=== PATIENT | female | born 1990 | race Asian ===

== ENCOUNTER 2018-03-31 13:40 | Emergency (ER) | payer OTHER ==
[~2018-03-31] VITALS: Ht 172.7 cm; Wt 59.0 kg
[2018-03-31 13:45] VITALS: BP 98/65
[2018-03-31] MEDS ORDERED: ORPHENADRINE CITRATE 60 MG/2 ML VIAL. IM ONE (14:15)
[2018-03-31] MEDS ORDERED: KETOROLAC 60 MG/2 ML INJ. IM ONE (14:15)
[2018-03-31 14:28] LABS: BILIRUBIN,URINE NEGATIVE (NEG); CLARITY,URINE CLEAR; COLOR,URINE YELLOW; NITRITE,URINE NEGATIVE (NEG); PH,URINE 5.5; PROTEIN,URINE NEGATIVE (NEG-TRACE); UROBILINOGEN,URINE 0.2 mg/dL (0.2 mg/dL)
[2018-03-31 14:47] LABS: BACTERIA,URINE FEW /HPF (0-FEW); RBC,URINE RARE /HPF (0-2); SQUAMOUS EPITHELIAL CELL,UR FEW /LPF
--- NOTE | 2018-03-31 15:26 | PHYS DOC ---
Past Medical History Past Medical History: Hypothyroid Past Surgical History: No Surgical History Alcohol Use: None Drug Use: None Adult General Chief Complaint Chief Complaint: BACK PAIN OR INJURY HPI HPI Patient is a 27 year old female who presents to the emergency room today with complaints of low back pain that radiates into her bilateral buttocks for the last two weeks. States that she took 220 mg of Aleve this morning that seemed to help her pain slightly. Currently, she reports her low back pain is a 4 out of 10 on the pain scale. Patient states for the last week she has also had increased urinary frequency. She denies any dysuria, saddle anesthesia, loss of bowel or bladder control, fever, foul smelling urine, hematuria, irregular vaginal discharge, or pelvic pain. Review of Systems Review of Systems Constitutional: Denies fever or chills [] Respiratory: Denies cough or shortness of breath [] GI: Denies abdominal pain, nausea, vomiting, or diarrhea [] : Denies dysuria or hematuria, reports increased urinary frequency x1 week [] Musculoskeletal: Deniesx joint pain, reports low back pain x2 weeks [] Neurologic: Denies headache, focal weakness or sensory changes [] Current Medications Current Medications Current Medications Medications (Trade) Dose Ordered Sig/Torsten Start Time Stop Time Status Last Admin Dose Admin Ketorolac Tromethamine (Toradol Im) 30 mg 1X ONCE 03/31/18 14:15 03/31/18 14:16 DC 03/31/18 14:42 30 MG Orphenadrine Citrate (Norflex) 60 mg 1X ONCE 03/31/18 14:15 03/31/18 14:15 DC Allergies Allergies Allergies Coded Allergies Type Severity Reaction Last Updated Verified codeine Allergy Intermediate RASH ALL OVER BODY 06/28/14 Yes Physical Exam Physical Exam Constitutional: Well developed, well nourished, no acute distress, non-toxic appearance. [] HENT: Normocephalic, atraumatic, bilateral external ears normal, nose normal. [] Eyes: normal Skin: Warm, dry, no erythema, no rash. [] Back: No bony tenderness, no CVA tenderness. [] Extremities: No tenderness, no cyanosis, no clubbing, ROM intact, no edema. [] Neurologic: Alert and oriented X 3, normal motor function, normal sensory function, no focal deficits noted. [] Psychologic: Affect normal, judgement normal, mood normal. [] Current Patient Data Vital Signs Vital Signs Date Time Temp Pulse Resp B/P (MAP) Pulse Ox O2 Delivery O2 Flow Rate FiO2 03/31/18 13:45 98.5 85 16 98/65 (76) 97 Room Air 98.5 Lab Values Laboratory Tests Test 03/31/18 14:19 03/31/18 14:21 Urine Collection Type Unknown Urine Color Yellow Urine Clarity Clear Urine pH 5.5 Urine Specific Kaiser >=1.030 Urine Protein Negative mg/dL (NEG-TRACE) Urine Glucose (UA) Negative mg/dL (NEG) Urine Ketones (Stick) Negative mg/dL (NEG) Urine Blood Negative (NEG) Urine Nitrite Negative (NEG) Urine Bilirubin Negative (NEG) Urine Urobilinogen Dipstick 0.2 mg/dL (0.2 mg/dL) Urine Leukocyte Esterase Small (NEG) Urine RBC Rare /HPF (0-2) Urine WBC 5-10 /HPF (0-4) Urine Squamous Epithelial Cells Few /LPF Urine Bacteria Few /HPF (0-FEW) POC Urine HCG, Qualitative Hcg negative (Negative) EKG EKG [] Radiology/Procedures Radiology/Procedures [] Course & Med Decision Making Course & Med Decision Making Pertinent Labs and Imaging studies reviewed. (See chart for details) 27-year-old female comes complaining of low back pain for the last 2 weeks and increased urinary frequency for a week. Physical exam not concerning for cauda equina syndrome. Consistent with low back strain with sciatica. UA reveals UTI, treated as such. Prescription for Bactrim, orphenadrine, and naproxen written.Patient verbalized an understanding of home care, medications, follow-up, and return to ED instructions and was in agreement with the plan of care. [] Staff Physician Addendum: I was working in the ER during the course of this patient's visit. I was available for consultation as needed, but I was not directly involved in the care of this patient. Dragon Disclaimer Dragon Disclaimer This electronic medical record was generated, in whole or in part, using a voice recognition dictation system. Departure Departure Impression: Primary Impression: Urinary tract infection Additional Impression: Low back strain Disposition: 01 HOME, SELF-CARE Condition: IMPROVED Referrals: NON,STAFF (PCP) Patient Instructions: Back Injury Prevention, [id number], Back Pain, Adult, Urinary Tract Infection, [id number] Additional Instructions: Fill the Prescriptions and use them as directed. Increase clear fluid intake. Avoid bladder irritants such as caffeine, spicy foods and carbonated beverages. Follow-up with primary care doctor next week, return to emergency room if your symptoms worsen. Scripts Naproxen (NAPROXEN) 500 Mg Tablet 500 MG PO BID for 10 Days, #20 TAB 0 Refills Prov: ISHAAN DALE APRN 03/31/18 Orphenadrine Citrate (ORPHENADRINE CITRATE) 100 Mg Tablet.er 1 TAB PO BID for 5 Days, #10 TAB 0 Refills Prov: ISHAAN DALE APRN 03/31/18 Sulfamethoxazole/Trimethoprim (BACTRIM DS TABLET) 1 Each Tablet 1 TAB PO BID for 5 Days, #10 TAB 0 Refills Prov: ISHAAN DALE APRN 03/31/18 Problem Qualifiers Primary Impression: Urinary tract infection Urinary tract infection type: site unspecified Hematuria presence: without hematuria Qualified Codes: N39.0 - Urinary tract infection, site not specified Additional Impression: Low back strain Encounter type: initial encounter Qualified Codes: S39.012A - Strain of muscle, fascia and tendon of lower back, initial encounter ISHAAN DALE APRN Mar 31, 2018 15:26 GRACE VALDEZ MD Apr 01, 2018 18:43
[2018-03-31] MEDS ORDERED: NAPR-514 PO (15:37)
[2018-03-31] MEDS ORDERED: ORPH100T PO (15:37)
[2018-03-31] MEDS ORDERED: SULF1TAB24 PO (15:37)
== END 2018-03-31 15:46 | disposition home or self-care (01) ==
LOC: ER 13:40
DX: S39.012A Strain of muscle, fascia and tendon of lower back, initial encounter (principal); N39.0 Urinary tract infection, site not specified; E03.9 Hypothyroidism, unspecified; Z88.5 Allergy status to narcotic agent; X58.XXXA Exposure to other specified factors, initial encounter; Y93.89 Activity, other specified; Y92.89 Other specified places as the place of occurrence of the external cause; Y99.8 Other external cause status
CPT/HCPCS: 81001; 81025; 87086; 96372; 99284; J1885